=== PATIENT | female | born 1980 | race American Indian/Alaskan Native ===

== ENCOUNTER 2017-06-22 21:17 | Emergency (ER) | payer OTHER, BC ==
[2017-06-22 21:36] VITALS: BP 123/78
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
== END 2017-06-23 05:09 | disposition home or self-care (01) ==
LOC: ED 21:17
DX: S16.1XXA Strain of muscle, fascia and tendon at neck level, initial encounter (principal); S39.012A Strain of muscle, fascia and tendon of lower back, initial encounter; F17.200 Nicotine dependence, unspecified, uncomplicated; V49.9XXA Car occupant (driver) (passenger) injured in unspecified traffic accident, initial encounter; Y93.89 Activity, other specified; Y92.89 Other specified places as the place of occurrence of the external cause; Y99.8 Other external cause status
CPT/HCPCS: 99282

== ENCOUNTER 2020-03-05 19:14 | Emergency (ER) | payer BC ==
[2020-03-05 19:42] LABS: Basophils # (Auto) 0.1 K/mm3 (0.0-0.1); Basophils % (Auto) 0.7 % (0.0-1.8); Eosinophils % (Auto) 0.4 % (0.0-4.3); Hematocrit 36.3 % (30.3-42.9); Hemoglobin 11.6 gm/dl (10.1-14.3); Lymphocytes # (Auto) 2.6 K/mm3 (1.2-5.4); Mean Corpuscular HGB Conc 32 % (30-34); Mean Corpuscular Volume 82 fl (79-97); Monocytes # (Auto) 0.9 K/mm3 (0.0-0.8); Monocytes % (Auto) 7.2 % (0.0-7.3); Platelet Count 243 K/mm3 (140-440); Red Blood Count 4.44 M/mm3 (3.65-5.03)
[2020-03-05 19:57] LABS: BUN/Creatinine Ratio 11; Blood Urea Nitrogen 9 mg/dL (7-17); Calcium 9.2 mg/dL (8.4-10.2); Hemolysis Index 6
--- NOTE | 2020-03-05 20:18 | XRay Report ---
CHEST 1 VIEW INDICATION: Chest Pain COMPARISON: None FINDINGS: Support devices: None Heart: Normal Lungs/Pleura: No acute pulmonary or pleural findings. IMPRESSION: 1. No acute disease. Signer Name: Gulshan Shook MD Signed: 03/05/2020 8:13 PM Workstation Name: [id number]
--- NOTE | 2020-03-05 23:54 | Emergency Department Report ---
ED Chest Pain HPI - General Chief Complaint: Chest Pain Stated Complaint: CHEST PAIN, SOB Time Seen by Provider: 03/05/20 23:38 Source: patient Mode of arrival: Ambulatory Limitations: No Limitations - History of Present Illness Initial Comments: The patient was evaluated in the emergency department for symptoms described in the history of present illness. He/she was evaluated in the context of the global COVID-19 pandemic, which necessitated consideration that the patient might be at risk for infection with the virus that causes COVID-19. Institu tional protocols and algorithms that pertain to the evaluation of patients at risk for COVID-19 are in a state of rapid change based on information released by regulatory bodies including the CDC and federal and state organizations. These policies and algorithms were followed during the patient's care in the emergency department. Please note that these policies, procedures and recommendations changed on a rapid basis. 39-year-old female presents to the emergency room for acute chest pain that started approximately 5 PM. Patient states that she thought it was gas but decided to come in to be evaluated. Patient states that the pain is mostly in her left side her neck upper chest and back. She states that the chest pain is tight. She feels that she has been a little panicky. She states breathing makes it worse and alleviates by applying pressure to her left chest. Patient d oes admit to moving furniture and increased stress with home schooling with her 15-year-old 8-year-old. [facility]. She states that she is not on control has not recently travel and no cancers. Patient states that she does take [id number] herbal supplements. She has no past medical history takes no medications on a daily basis and has no known drug allergies. MD Complaint: chest pain - Related Data Previous Rx's Medication Instructions Recorded Last Taken Type Cyclobenzaprine HCl [Flexeril 5 MG 5 mg PO TID PRN #20 tab 06/23/17 Unknown Rx TAB] Ibuprofen 800 mg PO Q6H PRN #20 tablet 06/23/17 Unknown Rx Ibuprofen [Motrin 600 MG tab] 600 mg PO Q8H PRN #30 tablet 03/05/20 Unknown Rx Allergies Allergy/AdvReac Type Severity Reaction Status Date / Time No Known Allergies Allergy Unverified 06/22/17 21:37 Heart Score - HEART Score History: Slightly suspicious EKG: Normal Age: < 45 Risk factors: No known risk factors Troponin: < normal limit HEART Score: 0 ED Review of Systems ROS: Stated complaint: CHEST PAIN, SOB Other details as noted in HPI Comment: All other systems reviewed and negative ED Past Medical Hx - Past Medical History Previous Medical History?: Yes Additional medical history: CLUSTER HEADACHES - Surgical History Past Surgical History?: Yes Additional Surgical History: C-SECTIONSX3 - Social History Smoking Status: Current Every Day Smoker Substance Use Type: Alcohol, Marijuana - Medications Home Medications: Home Medications Medication Instructions Recorded Confirmed Last Taken Type Cyclobenzaprine HCl [Flexeril 5 MG 5 mg PO TID PRN #20 tab 06/23/17 Unknown Rx TAB] Ibuprofen 800 mg PO Q6H PRN #20 tablet 06/23/17 Unknown Rx Ibuprofen [Motrin 600 MG tab] 600 mg PO Q8H PRN #30 tablet 03/05/20 Unknown Rx ED Physical Exam - General Limitations: No Limitations General appearance: alert, in no apparent distress - Head Head exam: Present: atraumatic, normocephalic - Eye Eye exam: Present: normal appearance - ENT ENT exam: Present: mucous membranes moist - Neck Neck exam: Present: normal inspection - Respiratory Respiratory exam: Present: normal lung sounds bilaterally. Absent: respiratory distress - Cardiovascular Cardiovascular Exam: Present: regular rate, normal rhythm. Absent: systolic murmur, diastolic murmur, rubs, gallop - GI/Abdominal GI/Abdominal exam: Present: soft, normal bowel sounds - Extremities Exam Extremities exam: Present: normal inspection - Back Exam Back exam: Present: normal inspection - Neurological Exam Neurological exam: Present: alert, oriented X3 - Psychiatric Psychiatric exam: Present: normal affect, normal mood - Skin Skin exam: Present: warm, dry, intact, normal color. Absent: rash ED Course Vital Signs 03/05/20 19:24 Temperature 98.5 F Pulse Rate 92 H Respiratory 20 Rate Blood Pressure 148/90 O2 Sat by Pulse 100 Oximetry BHASKAR score - Bhaskar Score Age > 65: (0) No Aspirin use within the Past 7 Days: (0) No 3 or more CAD Risk Factors: (0) No 2 or more Angina events in past 24 hrs: (0) No Known CAD with more than 50% Stenosis: (0) No Elevated Cardiac Markers: (0) No ST Deviation Greater than 0.5mm: (0) No BHASKAR Score: 0 ED Medical Decision Making - Lab Data Result diagrams: 03/05/20 19:33 03/05/20 19:33 - EKG Data EKG shows normal: sinus rhythm Rate: normal - Radiology Data Radiology results: report reviewed [facility] [address] [place] [address] XRay Report Signed Patient: EDE GALINDO MR#: [id number] : 1980 Acct:[id number] Age/Sex: 39 / F ADM Date: 03/05/20 Loc: ED Attending Dr: Ordering Physician: NICOL HARRINGTON MD Date of Service: 03/05/20 Procedure(s): XR chest 1V ap Accession Number(s): [id number] cc: ED MD JUANY Fluoro Time In Minutes: CHEST 1 VIEW INDICATION: Chest Pain COMPARISON: None FINDINGS: Support devices: None Heart: Normal Lungs/Pleura: No acute pulmonary or pleural findings. IMPRESSION: 1. No acute disease. Signer Name: Gulshan Shook MD Signed: 03/05/2020 8:13 PM Workstation Name: [id number] Transcribed By: TM Dictated By: Gulshan Shook MD Electronically Authenticated By: Gulshan Shook MD Signed Date/Time: 03/05/202012 DD/ 12 TD/TT: - Medical Decision Making 39-year-old female presents to the emergency room for acute chest pain that started approximately 5 PM. Patient states that she thought it was gas but decided to come in to be evaluated. Patient states that the pain is mostly in her left side her neck upper chest and back. She states that the chest pain is tight. She feels that she has been a little panicky. She states breathing makes it worse and alleviates by applying pressure to her left chest. Patient does admit to moving furniture and increased stress with home schooling with her 15-year-old 8-year-old. Patient denies any [employer] contact. She states that she is not on control has not recently travel and no cancers. Patient states that she does take [id number] herbal supplements. She has no past medical history takes no medications on a daily basis and has no known drug allergies. Chest x-ray within normal limits EKG normal sinus rhythm negative troponin CBC and chemistries are within normal limits. I discussed the patient about stressors in her life. Also reminded patient to be cautious of moving heavy objects. I recommend ibuprofen and to follow-up with her primary care provider and pony edger. Patient verbalized understanding. Critical care attestation.: If time is entered above; I have spent that time in minutes in the direct care of this critically ill patient, excluding procedure time. ED Disposition Clinical Impression: Atypical chest pain Disposition: DC-01 TO HOME OR SELFCARE Is pt being admited?: No Does the pt Need Aspirin: No Condition: Stable Instructions: Chest Pain (ED) Additional Instructions: Chest x-ray is within normal limits EKG is normal labs are within normal limits. I would recommend increase your fluid intake try taking some ibuprofen I am referring you to a pony edger as well as a primary care provider. Prescriptions: Ibuprofen [Motrin 600 MG tab] 600 mg PO Q8H PRN #30 tablet PRN Reason: Pain Referrals: PRIMARY MD ROCKY [Primary Care Provider] - 3-5 Days CRUZITO TAM MD [Staff Physician] - 3-5 Days BARBARA MONTEJO MD [Staff Physician] - 3-5 Days
[2020-03-06 00:17] VITALS: BP 135/89
== END 2020-03-06 00:16 | disposition home or self-care (01) ==
LOC: ED 19:14
DX: R07.89 Other chest pain (principal); M54.2 Cervicalgia; M54.6 Pain in thoracic spine; F17.200 Nicotine dependence, unspecified, uncomplicated; F12.10 Cannabis abuse, uncomplicated; Z98.890 Other specified postprocedural states; Z79.1 Long term (current) use of non-steroidal anti-inflammatories (NSAID); Z79.899 Other long term (current) drug therapy
CPT/HCPCS: 36415; 71045; 80048; 84484; 84703; 85025; 93005